=== PATIENT | female | born 1940 | race Caucasian/White ===

== ENCOUNTER 2020-02-25 00:30 | Inpatient (IN) | payer MEDICAID, SELFPAY ==
[2020-02-25] VITALS (8 sets, daily range): BP systolic 105–149; BP diastolic 50–84; PULSE 57–78; RESP 16–20; TEMP 36.4–37; O2SAT 94–98; BMI 25.4; BMI 22.5; BMI 22.6
--- NOTE | 2020-02-25 00:42 | RAD_ITS ---
STUDY: X-RAY - RIGHT KNEE REASON FOR EXAM: Female, 79 years old. FALL. KNEE PAIN TECHNIQUE: 4 view(s) of the knee. COMPARISON: None. FINDINGS: There are longitudinal fractures of the distal femur extending into the medial femoral condyle. The tibia and fibula and patella are intact. 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 There is a large suprapatellar effusion. RAD/Knee 4 or More Views IMPRESSION: There are longitudinal fractures of the distal femur extending into the medial femoral condyle. There is NO joint dislocation. There is a large suprapatellar effusion. Electronically Signed: Rodrick Braden MD at 1:52 EDT , Service support ,
--- NOTE | 2020-02-25 00:56 | ED.DCSUM_ITS ---
History of Present Illness Chief Complaint: Fall Informant: Patient, Family Limited: Language barrier Occurred: Today Mechanism/Context: Same level fall, Trip Usually ambulates: Without assistance Quality of Pain: Throbbing Narrative: Patient is an 79-year-old female presenting with difficulty walking and right knee pain after mechanical fall. Patient was walking with her daughter today when she tripped and fell. She landed on her right knee and braced herself with her hands. She was able to get herself back up but is since had worsening pain and swelling of her right knee. Family had her in the chair and put a knee compression wrap on and she sat the chair for about 4 hours. When she went to get up she could not walk. Patient was unable to go to the bathroom because she could not ambulate. On her patient is visiting from [place]. Her daughter is at the bedside who translates for her. Patient had ibuprofen at 730 this evening. Past Medical History - Allergies and Home Meds Allergies/Adverse Reactions: Allergies No Known Allergies Allergy (Verified 02/25/20 00:42) Past Medical History: - - Hypertension ,hyperlipidemia Surgical History: no surgical history Lives: With Family Smoking Status: Never smoker - Family History Paternal Family History: Reports: - - Patient denies any market maternal or paternal family history including heart disease, diabetes or cancer. Maternal Family History: Reports: - - Patient denies any market maternal or paternal family history including heart disease, diabetes or cancer. Review of Systems General: Denies: Chills, Fever, Sweats Eyes: Denies: Visual changes - bilaterally, Diplopia ENT: Denies: Rhinorrhea, Sore throat Cardiovascular: Denies: Chest pain, Palpitations Respiratory: Denies: Dyspnea, Cough, Dyspnea on exertion Gastrointestinal: Denies: Abdominal pain, Nausea, Vomiting, Diarrhea, Melena, Hematochezia Genitourinary: Denies: Dysuria, Hematuria, Frequency Musculoskeletal: Reports: Swelling, Extremity Pain - Right knee. Denies: Back pain Skin: Denies: Rash, Wounds Neurological: Denies: Headache, Weakness, Numbness Physical Exam Vital Signs/Narrative: Vital Signs Temp Pulse Resp BP Pulse Ox 02/25/20 00:32 98.0 F 66 16 149/84 H 96 Inital Vital Signs reviewed: Yes General: Well nourished, Well developed Head: Normocephalic, Atraumatic Eyes: Perrl, EOMI ENT: No trauma Neck: Nontender, Full ROM Cardiovascular: Regular rate, Regular rhythm, - - 2+ bilateral DP pulses Respiratory: No distress, CTA bilaterally, Chest nontender Abdomen: Soft, Nontender, Nondistended, Normal bowel sounds Extremeties: Extremities are equal length. Patient has significant soft tissue swelling and edema of the right knee. Straight leg mechanism is intact but limited secondary to pain. Decreased range of motion of the right knee and difficult to evaluate further secondary to pain and swelling. Point of maximum tenderness is over the medial knee. Skin: Normal color, No rash, - - Developing ecchymosis over the right knee Neurological: Alert, Oriented x3, Cranial nerves II-XII grossly intact, Normal Strength, Normal Sensation Psychological: Normal affect Diagnostic/Tx/Re-eval Clinical Impression(s) from Imaging Studies Knee X-Ray 02/25/20 00:42 IMPRESSION: There are longitudinal fractures of the distal femur extending into the medial femoral condyle. There is NO joint dislocation. There is a large suprapatellar effusion. Electronically Signed: Rodrick Braden MD at 1:52 EDT , Service support , Hip/Pelvis X-Ray 02/25/20 01:25 IMPRESSION: There are NO fractures or malalignments. 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 Electronically Signed: Rodrick Braden MD at 1:58 EDT , Service support , Lower Extremity CT 02/25/20 02:19 IMPRESSION: There is an intra-articular fracture of the distal femur extending from the medial aspect of the of the distal femoral diaphysis through the articular surface of the medial femoral condyle and the intercondylar region. 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 There is a large suprapatellar effusion. Electronically Signed: Rodrick Braden MD at 3:16 EDT , Service support , - Medical Decision Making Patient evaluated for right knee pain after mechanical fall. It happened about 4 hours prior to arrival. Initially given Tylenol and ibuprofen in the emergency room. She is otherwise well-appearing. She not hit her head or sustain any other injuries. She does have associated swelling of the knee. X- ray of the knee and hip are obtained and patient is found to have a distal femur fracture. Discussed with orthopedics on-call, Dr. Steven, who recommends obtaining a CT for further evaluation but believes it is likely this will be nonoperative and patient be placed in a knee immobilizer and nonweightbearing status. Discussed with the patient and her daughter. The daughter does not feel comfortable taking care of her mother especially with her nonweightbearing status with a resource that she currently has at home. Patient is unable to ambulate with nonweightbearing status. Patient be admitted for further evaluation and likely PT/OT. She is given 4 of IV morphine in the emergency room for pain control. Baseline labs are obtained for admission. ED Disposition - Plan for ED Patient: Disposition: [facility] Diagnosis: Fracture of distal end of femur
[2020-02-25] MEDS: Acetaminophen 325 MG Tablet 650 MG PO (01:07)
--- NOTE | 2020-02-25 01:25 | RAD_ITS ---
STUDY: X-RAY - PELVIS AND RIGHT HIP REASON FOR EXAM: Female, 79 years old. FALL, RIGHT HIP PAIN TECHNIQUE: 6 views of the pelvis and hip. COMPARISON: None. FINDINGS: There is a non-specific bowel gas pattern. Normal visualized soft tissue structures. Normal bilateral iliac wings, sacroiliac joints and visualized sacrum. Normal bilateral superior and inferior pubic rami. Normal pubic symphysis. Normal bilateral ischial tuberosities. Normal visualized femoral head. Normal acetabulum. There is advanced degenerative arthrosis of the hip joint. RAD/HIP, UNI W/ Pelvis 2-3 Views IMPRESSION: There are NO fractures or malalignments. 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 Electronically Signed: Rodrick Braden MD at 1:58 EDT , Service support ,
[2020-02-25] MEDS: Ibuprofen 200 MG Tablet 400 MG PO (01:37)
--- NOTE | 2020-02-25 02:19 | CT_ITS ---
STUDY: CT RIGHT femur WITHOUT CONTRAST REASON FOR EXAM: Female, 79 years old. Trauma RADIATION DOSAGE (If Supplied By Facility): CTDIvol = ( 15.37 ) mGy, DLP = ( 769.01 ) mGycm TECHNIQUE: Axial CT images of the RIGHT femur were obtained with multiplanar reconstruction. The protocol utlizes one or more of the following dose reduction techniques: automated exposure control, adjustment of the mA and/or KV according to the patient size, and/or use of iterative reconstruction techniques. Individualized dose optimization techniques were used for this CT. COMPARISON: No relevant priors. FINDINGS: The RIGHT hip is intact. There is NO fracture or dislocation. There is moderate degenerative arthrosis. There is an intra-articular fracture of the distal femur extending from the medial aspect of the of the distal femoral diaphysis through the articular surface of the medial femoral condyle and the intercondylar region. 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 The tibia and fibula and patella are intact. There is a large suprapatellar effusion. CT/Extremity Lower without Contra IMPRESSION: There is an intra-articular fracture of the distal femur extending from the medial aspect of the of the distal femoral diaphysis through the articular surface of the medial femoral condyle and the intercondylar region. 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 There is a large suprapatellar effusion. Electronically Signed: Rodrick Braden MD at 3:16 EDT , Service support ,
--- NOTE | 2020-02-25 02:44 | PCM.HP.STD ---
Problem List (1) Fracture of distal end of femur Status: Acute Qualifiers: Encounter type: initial encounter Fracture type: closed Fracture morphology: unspecified fracture morphology Laterality: right Qualified Code(s): S72.401A - Unspecified fracture of lower end of right femur, initial encounter for closed fracture (2) HTN (hypertension) Status: Chronic Qualifiers: Hypertension type: essential hypertension Qualified Code(s): I10 - Essential (primary) hypertension (3) HLD (hyperlipidemia) Status: Chronic Qualifiers: Hyperlipidemia type: unspecified Qualified Code(s): E78.5 - Hyperlipidemia, unspecified History of Present Illness Date of Admission: 02/25/20 Chief Complaint: Mechanical fall, R knee intractable pain The patient is an 79 y/o F w/ PMHx: HTN, HLD who presents to the [facility] ED on 02/25/20 with history of unfortunate mechanical fall approximately 5 hours prior to ED arrival with progressively worsening discomfort with severe/sharp constant, rated 6-7 out of 10 in severity, unable to bear weight, prompting eventual ED presentation. 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 In the ED patient administered Tylenol and ibuprofen. ED discussed case with on-call orthopedic surgeon, Dr. Steven who noted likely nonoperative and recommended knee immobilizer and nonweightbearing status however requested also CT to the right lower extremity to further assess. Pending concurrently admission CBC, BMP per ED. Patient's daughter is present and is acting as capacity analyst. Past Medical History Past Medical History (Chronic Problems): Chronic Problems HTN (hypertension) (Chronic) HLD (hyperlipidemia) (Chronic) Allergies No Known Allergies Allergy (Verified 02/25/20 00:42) Home Medications: Ambulatory Orders Medication Instructions Recorded Aspirin 325 mg PO DAILY 02/25/20 Atorvastatin Calcium 40 mg PO DAILY 02/25/20 Ergocalciferol (Vitamin D2) 1,250 mcg PO QWEEK 02/25/20 [Vitamin D2] Metoprolol Succinate 50 mg PO DAILY 02/25/20 Surgical History: cataract Psychiatric History: No pertinent psych hx FERMENTER CHAMPAGNE History: No pertinent FERMENTER CHAMPAGNE history Lives: With Family - Patient currently visiting her daughter but is actually from [place] and lives with other family there. Smoking Status: Never smoker Tobacco Use: Non-smoker Alcohol: None Drugs: None - *Family History Paternal History Items: - - Patient denies any market maternal or paternal family history including heart disease, diabetes or cancer. Maternal History Items: - - Patient denies any market maternal or paternal family history including heart disease, diabetes or cancer. Review of Systems Constitutional: Reports: Weakness, Fatigue. Denies: Anorexia, Chills, Fever, Malaise, Weight Change HEENT: Denies: Head Aches, Sinus Congestion, Sinus Drainage Cardiovascular: Denies: Chest Pain, Palpitations Respiratory: Denies: Cough, Shortness of breath at rest, Sputum production Gastrointestinal: Denies: Abdominal Pain, Nausea, Vomiting Genitourinary: Denies: Dysuria Musculoskeletal: Reports: Joint Pain, Joint stiffness, Joint swelling, Joint Tenderness Skin: Denies: Rash, Wounds Neurological: Denies: Numbness, Tingling, Focal weakness Psychiatric: Denies: Anxiety, Depression, Homicidal Ideations, Suicidal Ideations Hematologic/ Lymphatic: Denies: Easy Bruising, Easy Bleeding VTE Information - Inpt Only VTE Present on Admission: No VTE Mechan Device Prophylaxis: SCD's VTE Pharm Prophylaxis ordered?: No Reason prophylaxis not ordered:: Medical Contraindication - Hold for possible OR pending CT scan, currently appears nonoperative but will await imaging. Will plan adding chemoprophylaxis if appropriate. Patient Problems: Active and Suspected Problems Fracture of distal end of femur (Acute) Subjective: Patient seated upright in the ED bed, mildly fatigued appearing otherwise no acute distress, currently still rating right knee pain at 6 out of 10 in severity. Objective: Physical Examination: General: awake, alert, oriented x 3 and cooperative, seated upright in bed in no apparent distress but rating her pain 6 out of 10. Skin: normal color, turgor, no icterus, cyanosis. HEENT: AT/NC, EOMI, PERRLA, mildly dry MM, no carotid bruits or JVD noted. Lungs: CTA bilaterally, moderate effort, mild decrease BL bases, no rales, ronchi or wheezing. Heart: Regular rate and rhythm; no gallop, rub audible. Abdomen: soft, NTTP, ND, normal BS, no HSM. Extremities: no cyanosis, clubbing, status post mechanical fall with significant right knee enlargement, tender to palpation, peripheral pulses intact, deferred range of motion secondary to fracture. Neurological: patient awake, alert, oriented x 3; cognitive function intact; pupils equally reactive to light and accomodation; cranial nerves II-XII grossly normal, moving all 4 extremities except expected limited right lower extremity secondary to distal femur fracture, significant swelling to the right knee, strength accordingly moderately to severely global decrease. Psychiatric: affect appears mildly fatigued otherwise normal, no acute evidence of depressive or anxiety feelings. - Physical Exam Vitals/I&O's: Vital Signs Temp Pulse Resp BP Pulse Ox 98.0 F 66 16 149/84 H 96 02/25/20 00:32 02/25/20 00:32 02/25/20 00:32 02/25/20 00:32 02/25/20 00:32 Oxygen Delivery Method Room Air Weight: 130 lb 1.164 oz Body Mass Index (BMI) 25.4 Assessment/Plan All Active Problems Fracture of distal end of femur (Acute) The patient is an 79 y/o F w/ PMHx: HTN, HLD who presents to the [facility] ED on 02/25/20 with history of unfortunate mechanical fall approximately 5 hours prior to ED arrival with progressively worsening discomfort and now inability to even bear weight with severe ongoing pain. 1. Mechanical fall with a right distal femur longitudinal fractures with large suprapatellar effusion: ED plain film of the right knee with noted longitudinal fractures of the distal femur extending into the medial femoral condyle with no joint dislocation but a large suprapatellar effusion, pending CT right lower extremity per orthopedic surgery request. Orthopedic surgery consulted from ED. Will admit to MS, maintain NPO in case of any operative intervention given CT right lower extremity pending however likely nonoperative per initial discussions, continue judicious IV fluids, monitor I/Os, frequent positioning, fall precautions, Pain, anti-emetic regimen. PT/OT with nonweightbearing status to right lower extremity and continue knee immobilizer. CM consulted for discharge planning. Patient may be an appropriate acute rehab candidate. 2. Hypertension: Continue home regimen including metoprolol, PRN hydralazine. 3. Hyperlipidemia: Continue home statin regimen. 4. DVT prophylaxis: SCDs if able to tolerate, defer chemoprophylaxis pending orthopedic surgery evaluation in case of OR needs. OBSV E&M: 71045 Initial observation care L3
[2020-02-25] MEDS: Morphine 4 MG/ML Syringe IV ×3 (03:16→11:14)
[2020-02-25 03:23] LABS: Absolute Lymphocyte Count 1.95 X10^3/uL (0.83-4.51); Absolute Neutrophil Count 10.3 X10^3/uL (2.0-7.7); Basophil# 0.05 X10^3/uL; Basophil% 0.4 % (0-1); Eosinophil# 0.23 X10^3/uL; Eosinophils% 1.7 % (0-5); Hematocrit 34.7 % (37-47); Hemoglobin 11.2 g/dL (12.0-15.0); Lymphocyte # 1.95 X10^3/ul (4.0); Lymphocyte % 14.4 % (19-41); Mean Corp Hgb Conc 32.3 g/dL (32-36); Mean Corpuscular Hgb 29.6 pg (27.0-32.0); Mean Corpuscular Volume 91.8 fL (81-99); Mean Platelet Vol. 9.9 fl (6.2-12.0); Monocyte# 0.96 X10^3/uL; Monocyte% 7.1 % (0-10); NRBC Flagged by Analyzer 0 % (0-5); Neutrophil # 10.32 X10^3/uL (2.7-7.7); Platelet Count 246 K/mm3 (150-450); RBC Distribution Width CV 12.6 % (11.6-14.6); RBC Distribution Width SD 41.9 fl (35.1-43.9); Red Blood Count 3.78 M/mm3 (4.2-5.4); White Blood Count 13.6 K/mm3 (4.4-11.0)
[2020-02-25 03:39] LABS: Anion Gap 8 (5-15); BUN 28 mg/dL (7-18); BUN/Creat Ratio 24.8 RATIO (10-20); Calcium,Total 8.6 mg/dL (8.5-10.1); Chloride 100 mmol/L (98-107); Creatinine, Serum 1.13 mg/dL (0.55-1.02); EST Glomerular Filtration Rate 49 mL/min (>60); Est Glom Filt Rate - Afr Amer 59 mL/min (>60); Estimated Creatinine Clearance 28.05 ml/min; Glucose 119 mg/dL (74-106); Potassium 4.3 mmol/L (3.5-5.1); Sodium Level 134 mmol/L (136-145)
[2020-02-25 05:17] LABS: Magnesium 1.8 mg/dL (1.6-2.6)
[2020-02-25] MEDS: 0.9% Saline Lock 10 ML Syringe IV ×4 (05:46→14:14)
[2020-02-25] MEDS: 0.9% Normal Saline 1,000 ML 100 ML IV (05:46)
[2020-02-25] MEDS: Ondansetron 4 MG/2 ML Vial IV (05:54)
--- NOTE | 2020-02-25 08:20 | PCM.PN.BLA ---
Progress Note 79-year-old lady admitted with intractable right knee pain following a mechanical fall imaging studies demonstrated longitudinal fractures of the distal femur extending into the medial femoral condyle. Right lower extremity immobilized admitted to regular nursing floor with consultation placed to orthopedic surgery Assessment 1. Acute mechanical fall with longitudinal fractures of the distal femur extending into the medial femoral condyle extremity 2. Essential hypertension 3. Dyslipidemia Patient seen and examined her initial assessment including history and physical diagnostic data and management orders reviewed will follow [facility] Vital Signs/Narrative: Vital Signs Temp Pulse Resp BP Pulse Ox 02/25/20 04:50 98.5 F 66 20 H 130/74 H 97
--- NOTE | 2020-02-25 11:46 | CASEMGMT ---
Social Work SW met with pt and daughter Brittaney. Pt is non-Wolof speaking and Brittaney spoke on behalf of pt. Pt lives in [place] and a daughter Kirstin lives close by. Pt does not drive but is independent with all ADLs and IADLs. Pt was visiting dgt Brittaney, who lives in [place], and had a fall at her home. Brittaney states she cannot care for pt at home and would like pt to stay at [facility] for rehab. Pt may be a candidate for Inpatient Rehab Unit. Brittaney is uncertain if pt has a HCPOA but states pt sister Kirstin has more information. Phone call placed to Kirstin who confirms pt lives close to her in [place] and that pt was independent at home. Pt does have a HCPOA naming Kirstin and she will ask PCP to fax copy of document to [facility]. Kirstin is agreeable to Inpatient Rehab and states after rehab pt will be returning to [place], either pt own home or with Kirstin depending on how pt is doing. SW explained to both Brittaney and Kirstin that [place] is dependent on pt ability to participate in 3 hours of therapy a day and on insurance authorization. Orthopedic consult is pending as well at PT/OT. Phone call to Debbi in [place] and notified of referral dependent on outcome of Ortho and therapy. NEREYDA will continue to follow for discharge planning. Plan: Inpatient Rehab, pending pt auth and pt ability to participate. MERE Dean
[2020-02-25] MEDS: proCHLORPERazine 10 MG/2 ML Vial 5 MG IV (14:13)
[2020-02-25] MEDS: Famotidine 20 MG Tablet PO ×2 (14:14→21:36)
--- NOTE | 2020-02-25 16:07 | PCM.CONS.GEN ---
Reason for Consult Date of Consultation: 02/25/20 Reason for Consultation: right knee pain. Requested by Dr. Strickland History of Present Illness: The patient is a 79 year old F with history of hyperlipidemia, hypertension, coronary artery disease and breast cancer presents today status post fall. Patient was visiting her daughter when she had a mechanical fall she lives in [place] originally. Her daughter lives in town. Fall patient had severe swelling of the right knee and inability to bear weight. She reports pain today. She is unable to speak Mongolian to her daughter was able to face time and interpret for me. She notes she has minimal pain usually and I thought her dyspnea mother's description of the pain was rated at a 7 out of 10. She has been very calm and collected she did well with therapy just prior to being seen by me. We have made her nonweightbearing. Pain is worse with motion better with immobilization. She is in a knee immobilizer right now. Denies any numbness and tingling distally. Past Medical History Past Medical History (Chronic Problems): Chronic Problems HTN (hypertension) (Chronic) HLD (hyperlipidemia) (Chronic) Allergies No Known Allergies Allergy (Verified 02/25/20 00:42) Home Medications: Ambulatory Orders Medication Instructions Recorded Aspirin 325 mg PO DAILY 02/25/20 Atorvastatin Calcium 40 mg PO DAILY 02/25/20 Ergocalciferol (Vitamin D2) 1,250 mcg PO QWEEK 02/25/20 [Vitamin D2] Metoprolol Succinate 50 mg PO DAILY 02/25/20 Surgical History: no surgical history Psychiatric History: No pertinent psych hx METALLURGICAL SPECIALIST History: No pertinent METALLURGICAL SPECIALIST history Lives: With Family Smoking Status: Never smoker Tobacco Use: Non-smoker Alcohol: None Drugs: None - *Family History Paternal History Items: - - Patient denies any market maternal or paternal family history including heart disease, diabetes or cancer. Maternal History Items: - - Patient denies any market maternal or paternal family history including heart disease, diabetes or cancer. Review of Systems Constitutional: Denies: Chills, Fever, Weight Change HEENT: Denies: Head Aches, Sinus Congestion, Sinus Drainage Cardiovascular: Denies: Chest Pain, Palpitations Respiratory: Denies: Cough, Shortness of breath at rest, Sputum production Gastrointestinal: Denies: Abdominal Pain, Nausea, Vomiting Genitourinary: Denies: Dysuria Musculoskeletal: Reports: Joint swelling, Joint Tenderness. Denies: Joint Pain Skin: Denies: Rash, Wounds Neurological: Denies: Numbness, Tingling, Focal weakness Psychiatric: Denies: Anxiety, Depression, Homicidal Ideations, Suicidal Ideations Hematologic/ Lymphatic: Denies: Easy Bruising, Easy Bleeding Patient Problems: Active and Suspected Problems Fracture of distal end of femur (Acute) Objective: Right knee x-ray and CT scan were reviewed showing a intercondylar medial condyle fracture exiting at the metaphyseal diaphyseal junction of the medial femur. It is not in the weightbearing surface. It goes into the intercondylar notch. There is minimal displacement of the fracture. Patient also has evidence of severe osteoarthritis in the right knee. Right hip x-rays reveal no acute fractures. - Physical Exam Vitals/I&O's: Vital Signs Temp Pulse Resp BP Pulse Ox 98.1 F 57 L 18 120/50 L 98 02/25/20 14:46 02/25/20 14:46 02/25/20 14:46 02/25/20 14:46 02/25/20 14:46 Oxygen Delivery Method Room Air Weight: 115 lb 8.356 oz Body Mass Index (BMI) 22.5 Intake and Output for Last 24 Hours 02/23/20 02/24/20 02/25/20 23:59 23:59 23:59 Intake Total 250 / 250 Balance 250 / 250 General: Alert, Cooperative Extremities: - - Right lower extremity: Much of the exam is limited by the patient's communication barrier. She is able to wiggle her digits. She responds to noxious stimuli. She has a large effusion likely related to hemarthrosis of the joint. Does not tolerate range of motion secondary to pain and effusion. No overlying erythema. Laboratory Results 02/25/20 03:15: WBC 13.6 H, RBC 3.78 L, Hgb 11.2 L, Hct 34.7 L, MCV 91.8, MCH 29.6, MCHC 32.3, RDW Std Deviation 41.9, RDW Coeff of Saleem 12.6, Plt Count 246, MPV 9.9, Immature Gran % (Auto) 0.400, Neut % (Auto) 76.0 H, Lymph % (Auto) 14.4 L, [place] % (Auto) 7.1, Eos % (Auto) 1.7, Baso % (Auto) 0.4, Absolute Neuts (auto) 10.3 H, Absolute Lymphs (auto) 1.95, Nucleated RBC % 0 02/25/20 03:15: Sodium 134 L, Potassium 4.3, Chloride 100, Carbon Dioxide 26.0, Anion Gap 8, BUN 28 H, Creatinine 1.13 H, Estim Creat Clear Calc 28.05, Est GFR (MDRD) Af Amer 59 L, Est GFR (MDRD) Non-Af 49 L, BUN/Creatinine Ratio 24.8 H, Glucose 119 H, Calcium 8.6 02/25/20 03:15: Magnesium 1.8 Current Medications Acetaminophen (Tylenol) 650 mg PO Q6H PRN PRN PRN Reason: Pain Score 1-10/Temp > 100.7 F Al Hydroxide/Mg Hydroxide (Mylanta Ii) 30 ml PO Q6H PRN PRN PRN Reason: Gastric Burning Albuterol Sulfate (Ventolin Aerosols) 2.5 mg INHALATION Q2H PRN PRN PRN Reason: Dyspnea, wheezing [facility] Last Admin: 02/25/20 08:42 Dose: Not Given Documented by: Atorvastatin Calcium (Lipitor) 40 mg PO QHS [facility] Famotidine (Pepcid) 20 mg PO BID [facility] Last Admin: 02/25/20 14:14 Dose: 20 mg Documented by: Guaifenesin (Robitussin) 20 ml PO Q4H PRN PRN PRN Reason: COUGH Hydralazine HCl (Apresoline Iv) 10 mg IV Q4H PRN PRN PRN Reason: SBP > 160 Sodium Chloride () 250 mls @ 15 mls/hr IV .[id number] PRN PRN Reason: Saline Flush Magnesium Hydroxide (Milk Of Magnesia) 30 ml PO DAILY PRN PRN PRN Reason: Constipation Melatonin (Melatonin) 3 mg PO QHS PRN PRN PRN Reason: INSOMNIA Metoprolol Succinate (Toprol Xl (Beta Skye)) 50 mg PO DAILY [facility] Last Admin: 02/25/20 11:15 Dose: Not Given Documented by: Morphine Sulfate () 4 mg IV Q3H PRN PRN PRN Reason: Pain Score 6-10/10 Last Admin: 02/25/20 11:14 Dose: 4 mg Documented by: Nitroglycerin (Nitrostat) 0.4 mg SUBLINGUAL Q5M PRN PRN Reason: CARDIAC/CHEST PAIN Ondansetron HCl (Zofran) 4 mg IV Q8H PRN PRN PRN Reason: NAUSEA/VOMITING Last Admin: 02/25/20 05:54 Dose: 4 mg Documented by: Oxycodone HCl (Oxyir) 5 mg PO Q4H PRN PRN PRN Reason: Pain Score 4-5/10 Prochlorperazine Edisylate (Compazine Iv) 5 mg IV Q4H PRN PRN PRN Reason: Breakthrough nausea/vomiting Last Admin: 02/25/20 14:13 Dose: 5 mg Documented by: Psyllium Hydrophilic Mucilloid (Metamucil) 1 packet PO DAILY PRN PRN PRN Reason: Constipation Senna/Docusate Sodium (Senokot-S, Adamaris-Colace) 2 tablet PO BID PRN PRN PRN Reason: Constipation Sodium Chloride () 10 - 40 ml IV UD PRN PRN Reason: SALINE FLUSH Last Admin: 02/25/20 14:14 Dose: 10 ml Documented by: Throat Lozenges (Cepacol Sore Throat Lozenge) 1 lozenge MUCOUS MEM Q2H PRN PRN PRN Reason: SORE THROAT Assessment/Plan All Active Problems Fracture of distal end of femur (Acute) Right medial condyle distal femur fracture with minimal displacement. Natural history of the disease process was discussed with the patient's daughter and her who is a internal medicine physician in [place]. I outlined to treatment options one would be close following with nonoperative treatment to evaluate if she is able to follow the weightbearing restrictions. Second option was to proceed with percutaneous fixation of the fracture. The option was open plating of the medial femur based on the severe arthrosis already recommended against a large open procedure. Ultimately we elected to see how the patient tolerates nonweightbearing and the physical therapy regimen. If she tolerates it well and the fracture remained stable we will proceed with nonoperative treatment. We will follow her closely and reassess her again early next week. We will see how she does with therapy over the weekend and if she is not tolerating therapy we will likely proceed with percutaneous fixation. Family was agreeable to this treatment plan in light of her age pre-existing severe radiographic osteoarthritis and medical comorbidities. The plan has been discussed with the internal medicine physician managing her in-house care. We will keep her through the weekend and evaluate her tolerance of therapy and repeat x-rays on Friday. [facility] Office:
--- NOTE | 2020-02-25 16:23 | CASEMGMT ---
Social Work Per orthopedic physician, pt will be reassessed on Friday. SW will continue to follow for discharge planning and appropriateness of inpatient rehab. VM left with Debbi in [place] and updated on pt status. MERE Dean
[2020-02-25] MEDS: Atorvastatin Calcium 40 MG Tablet PO (21:36)
[2020-02-26 02:29] VITALS: BP 116/58; PULSE 74; RESP 17; TEMP 36.9; O2SAT 93
[2020-02-26] MEDS: oxyCODONE 5 MG Tablet PO ×2 (06:55→12:46)
[2020-02-26] MEDS: Enoxaparin 30 MG/0.3 ML Syringe SC (06:55)
[2020-02-26 07:02] VITALS: O2SAT 93
[2020-02-26 07:03] LABS: Absolute Neutrophil Count 6.9 X10^3/uL (2.0-7.7); Basophil# 0.06 X10^3/uL; Basophil% 0.5 % (0-1); Eosinophil# 0.21 X10^3/uL; Eosinophils% 1.8 % (0-5); Hematocrit 34.5 % (37-47); Hemoglobin 10.8 g/dL (12.0-15.0); Lymphocyte % 28.7 % (19-41); Mean Corp Hgb Conc 31.3 g/dL (32-36); Mean Corpuscular Volume 92.7 fL (81-99); Mean Platelet Vol. 10.6 fl (6.2-12.0); Monocyte# 1.25 X10^3/uL; Monocyte% 10.5 % (0-10); NRBC Flagged by Analyzer 0 % (0-5); Neutrophil # 6.89 X10^3/uL (2.7-7.7); Neutrophil % 58.2 % (47-70); Platelet Count 277 K/mm3 (150-450); RBC Distribution Width CV 12.8 % (11.6-14.6); RBC Distribution Width SD 43.2 fl (35.1-43.9); Red Blood Count 3.72 M/mm3 (4.2-5.4); White Blood Count 11.9 K/mm3 (4.4-11.0)
--- NOTE | 2020-02-26 07:11 | PCM.PN.HOSP ---
Patient Problems: Active and Suspected Problems Fracture of distal end of femur (Acute) Reason for Visit: S/p fractures of the distal femur extending into the medial femoral condyle Subjective: 79-year-old lady admitted with intractable right knee pain following a mechanical fall imaging studies demonstrated longitudinal fractures of the distal femur extending into the medial femoral condyle. Right lower extremity immobilized admitted to regular nursing floor with consultation placed to orthopedic surgery Objective: GENERAL: cooperative HEENT: Atraumatic; EYES; Anicteric, Normal Conjunctiva NECK; supple, normal thyroid, RESPIRATORY: Diminished to auscultation CARDIOVASCULAR: Regular S1 S2, GI: soft, normoactive bowel sounds, : No Renal angle tenderness; EXTREMITIES: No edema, no clubbing, MUSCULOSKELETAL: R Lower extremity immobilized NEURO: Awake; no lateralizing signs. SKIN: No Rash PSYCH; Flat affect Vitals/I&O's: Vital Signs Temp Pulse Resp BP Pulse Ox 98.4 F 74 17 116/58 L 93 02/26/20 02:29 02/26/20 02:29 02/26/20 02:29 02/26/20 02:02/26/20 07:02 Oxygen Delivery Method Room Air Weight: 52.4 kg Body Mass Index (BMI) 22.5 Intake and Output for Last 24 Hours 02/24/20 02/25/20 02/26/20 23:59 23:59 23:59 Intake Total 1650 / 1650 560 / 560 Balance 1650 / 1650 560 / 560 Laboratory Results 02/26/20 06:16: WBC 11.9 H, RBC 3.72 L, Hgb 10.8 L, Hct 34.5 L, MCV 92.7, MCH 29.0, MCHC 31.3 L, RDW Std Deviation 43.2, RDW Coeff of Saleem 12.8, Plt Count 277, MPV 10.6, Immature Gran % (Auto) 0.300, Neut % (Auto) 58.2, Lymph % (Auto) 28.7, [place] % (Auto) 10.5 H, Eos % (Auto) 1.8, Baso % (Auto) 0.5, Absolute Neuts (auto) 6.9, Absolute Lymphs (auto) 3.40, Nucleated RBC % 0 02/26/20 06:16: Sodium Pending, Potassium Pending, Chloride Pending, Carbon Dioxide Pending, Anion Gap Pending, BUN Pending, Creatinine Pending, Est GFR (MDRD) Af Amer Pending, Est GFR (MDRD) Non-Af Pending, BUN/Creatinine Ratio Pending, Glucose Pending, Calcium Pending, Total Bilirubin Pending, AST Pending, ALT Pending, Alkaline Phosphatase Pending, Total Protein Pending, Albumin Pending Current Medications Acetaminophen (Tylenol) 650 mg PO Q6H PRN PRN PRN Reason: Pain Score 1-10/Temp > 100.7 F Al Hydroxide/Mg Hydroxide (Mylanta Ii) 30 ml PO Q6H PRN PRN PRN Reason: Gastric Burning Albuterol Sulfate (Ventolin Aerosols) 2.5 mg INHALATION Q2H PRN PRN PRN Reason: Dyspnea, wheezing Aspirin (Aspirin) 325 mg PO DAILYCM [facility] Last Admin: 02/25/20 08:42 Dose: Not Given Documented by: Atorvastatin Calcium (Lipitor) 40 mg PO QHS [facility] Last Admin: 02/25/20 21:36 Dose: 40 mg Documented by: Enoxaparin Sodium (Lovenox) 30 mg SC DAILY@0600 [facility] Last Admin: 02/26/20 06:55 Dose: 30 mg Documented by: Famotidine (Pepcid) 20 mg PO BID [facility] Last Admin: 02/25/20 21:36 Dose: 20 mg Documented by: Guaifenesin (Robitussin) 20 ml PO Q4H PRN PRN PRN Reason: COUGH Hydralazine HCl (Apresoline Iv) 10 mg IV Q4H PRN PRN PRN Reason: SBP > 160 Sodium Chloride () 250 mls @ 15 mls/hr IV .[id number] PRN PRN Reason: Saline Flush Magnesium Hydroxide (Milk Of Magnesia) 30 ml PO DAILY PRN PRN PRN Reason: Constipation Melatonin (Melatonin) 3 mg PO QHS PRN PRN PRN Reason: INSOMNIA Metoprolol Succinate (Toprol Xl (Beta Skye)) 50 mg PO DAILY [facility] Last Admin: 02/25/20 11:15 Dose: Not Given Documented by: Morphine Sulfate () 4 mg IV Q3H PRN PRN PRN Reason: Pain Score 6-10/10 Last Admin: 02/25/20 11:14 Dose: 4 mg Documented by: Nitroglycerin (Nitrostat) 0.4 mg SUBLINGUAL Q5M PRN PRN Reason: CARDIAC/CHEST PAIN Ondansetron HCl (Zofran) 4 mg IV Q8H PRN PRN PRN Reason: NAUSEA/VOMITING Last Admin: 02/25/20 05:54 Dose: 4 mg Documented by: Oxycodone HCl (Oxyir) 5 mg PO Q4H PRN PRN PRN Reason: Pain Score 4-5/10 Last Admin: 02/26/20 06:55 Dose: 5 mg Documented by: Prochlorperazine Edisylate (Compazine Iv) 5 mg IV Q4H PRN PRN PRN Reason: Breakthrough nausea/vomiting Last Admin: 02/25/20 14:13 Dose: 5 mg Documented by: Psyllium Hydrophilic Mucilloid (Metamucil) 1 packet PO DAILY PRN PRN PRN Reason: Constipation Senna/Docusate Sodium (Senokot-S, Adamaris-Colace) 2 tablet PO BID PRN PRN PRN Reason: Constipation Sodium Chloride () 10 - 40 ml IV UD PRN PRN Reason: SALINE FLUSH Last Admin: 02/25/20 14:14 Dose: 10 ml Documented by: Throat Lozenges (Cepacol Sore Throat Lozenge) 1 lozenge MUCOUS MEM Q2H PRN PRN PRN Reason: SORE THROAT STROKE Vital Signs/Narrative: Vital Signs Pulse Ox 02/26/20 07:02 93 Medical Necessity - Tobacco Use Smoking Status: Never smoker Tobacco Use: Non-smoker Assessment/Plan All Active Problems Fracture of distal end of femur (Acute) 79-year-old lady admitted with intractable right knee pain following a mechanical fall imaging studies demonstrated longitudinal fractures of the distal femur extending into the medial femoral condyle. Right lower extremity immobilized admitted to regular nursing floor with consultation placed to orthopedic surgery 1. Acute mechanical fall with longitudinal fractures of the distal femur extending into the medial femoral condyle extremity -admitted to regular nursing floor with consultation placed to orthopedic surgery; Case d/w Dr Steven plan is for conservative management at this time 2. Hypertension - Blood pressure controlled, home medications continued with dose adjustment as needed 3. Dyslipidemia -Patient is on statin therapy, continued at home dose 4. DVT prophylaxis ?Lovenox dose adjusted for kidney function Active Medications Acetaminophen (Tylenol) 650 mg PO Q6H PRN PRN PRN Reason: Pain Score 1-10/Temp > 100.7 F Al Hydroxide/Mg Hydroxide (Mylanta Ii) 30 ml PO Q6H PRN PRN PRN Reason: Gastric Burning Albuterol Sulfate (Ventolin Aerosols) 2.5 mg INHALATION Q2H PRN PRN PRN Reason: Dyspnea, wheezing Aspirin (Aspirin) 325 mg PO DAILYCM [facility] Last Admin: 02/25/20 08:42 Dose: Not Given Documented by: Atorvastatin Calcium (Lipitor) 40 mg PO QHS [facility] Last Admin: 02/25/20 21:36 Dose: 40 mg Documented by: Enoxaparin Sodium (Lovenox) 30 mg SC DAILY@0600 [facility] Last Admin: 02/26/20 06:55 Dose: 30 mg Documented by: Famotidine (Pepcid) 20 mg PO BID [facility] Last Admin: 02/25/20 21:36 Dose: 20 mg Documented by: Guaifenesin (Robitussin) 20 ml PO Q4H PRN PRN PRN Reason: COUGH Hydralazine HCl (Apresoline Iv) 10 mg IV Q4H PRN PRN PRN Reason: SBP > 160 Sodium Chloride () 250 mls @ 15 mls/hr IV .[id number] PRN PRN Reason: Saline Flush Magnesium Hydroxide (Milk Of Magnesia) 30 ml PO DAILY PRN PRN PRN Reason: Constipation Melatonin (Melatonin) 3 mg PO QHS PRN PRN PRN Reason: INSOMNIA Metoprolol Succinate (Toprol Xl (Beta Skye)) 50 mg PO DAILY [facility] Last Admin: 02/25/20 11:15 Dose: Not Given Documented by: Morphine Sulfate () 4 mg IV Q3H PRN PRN PRN Reason: Pain Score 6-10/10 Last Admin: 02/25/20 11:14 Dose: 4 mg Documented by: Nitroglycerin (Nitrostat) 0.4 mg SUBLINGUAL Q5M PRN PRN Reason: CARDIAC/CHEST PAIN Ondansetron HCl (Zofran) 4 mg IV Q8H PRN PRN PRN Reason: NAUSEA/VOMITING Last Admin: 02/25/20 05:54 Dose: 4 mg Documented by: Oxycodone HCl (Oxyir) 5 mg PO Q4H PRN PRN PRN Reason: Pain Score 4-5/10 Last Admin: 08/15/20 06:55 Dose: 5 mg Documented by: Prochlorperazine Edisylate (Compazine Iv) 5 mg IV Q4H PRN PRN PRN Reason: Breakthrough nausea/vomiting Last Admin: 02/25/20 14:13 Dose: 5 mg Documented by: Psyllium Hydrophilic Mucilloid (Metamucil) 1 packet PO DAILY PRN PRN PRN Reason: Constipation Senna/Docusate Sodium (Senokot-S, Adamaris-Colace) 2 tablet PO BID PRN PRN PRN Reason: Constipation Sodium Chloride () 10 - 40 ml IV UD PRN PRN Reason: SALINE FLUSH Last Admin: 02/25/20 14:14 Dose: 10 ml Documented by: Throat Lozenges (Cepacol Sore Throat Lozenge) 1 lozenge MUCOUS MEM Q2H PRN PRN PRN Reason: SORE THROAT Clinical Impression(s) from Imaging Studies Knee X-Ray 02/25/20 00:42 IMPRESSION: There are longitudinal fractures of the distal femur extending into the medial femoral condyle. There is NO joint dislocation. There is a large suprapatellar effusion. Electronically Signed: Rodrick Braden MD at 1:52 EDT , Service support , Hip/Pelvis X-Ray 02/25/20 01:25 IMPRESSION: There are NO fractures or malalignments. 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 Electronically Signed: Rodrick Braden MD at 1:58 EDT , Service support , Lower Extremity CT 02/25/20 02:19 IMPRESSION: There is an intra-articular fracture of the distal femur extending from the medial aspect of the of the distal femoral diaphysis through the articular surface of the medial femoral condyle and the intercondylar region. 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 There is a large suprapatellar effusion. Electronically Signed: Rodrick Braden MD at 3:16 EDT , Service support , Inpatient E&M: [id number] Subs Hosp L2
[2020-02-26 07:29] LABS: ALB/GLOB Ratio 0.9 RATIO (0.9-2.4); AST(SGOT) 21 U/L (15-37); Alanine Aminotransfer ALT/SGPT 20 U/L (13-56); Albumin, Serum 3.3 g/dL (3.2-5.0); Alkaline Phosphatase 65 U/L (45-117); Anion Gap 9 (5-15); BUN 20 mg/dL (7-18); BUN/Creat Ratio 17.4 RATIO (10-20); Calcium,Total 8.5 mg/dL (8.5-10.1); Chloride 104 mmol/L (98-107); Creatinine, Serum 1.15 mg/dL (0.55-1.02); EST Glomerular Filtration Rate 48 mL/min (>60); Est Glom Filt Rate - Afr Amer 58 mL/min (>60); Estimated Creatinine Clearance 27.56 ml/min; Globulin 3.8 g/dL (2.2-4.2); Glucose 101 mg/dL (74-106); Potassium 3.8 mmol/L (3.5-5.1); Protein, Total 7.1 g/dL (6.4-8.2); Sodium Level 138 mmol/L (136-145)
[2020-02-26 08:00] VITALS: BP 120/67; PULSE 94; RESP 16; TEMP 36.9; O2SAT 99
[2020-02-26] MEDS: Acetaminophen 325 MG Tablet 650 MG PO ×2 (10:49→17:51)
[2020-02-26 10:50] VITALS: PULSE 95
[2020-02-26] MEDS: Aspirin 325 MG Tablet PO (10:50)
[2020-02-26] MEDS: Famotidine 20 MG Tablet PO ×2 (10:50→20:53)
[2020-02-26] MEDS: Metoprolol(XL)Succ 50 MG Tablet PO (10:50)
[2020-02-26 15:30] VITALS: BP 119/69; PULSE 85; RESP 16; TEMP 36.9; O2SAT 98
[2020-02-26 20:44] VITALS: BP 111/62; PULSE 73; RESP 18; TEMP 36.9; O2SAT 97
[2020-02-26] MEDS: Atorvastatin Calcium 40 MG Tablet PO (20:53)
[2020-02-27 04:00] VITALS: BP 140/81; PULSE 70; RESP 18; TEMP 37.6; O2SAT 97
[2020-02-27] MEDS: Acetaminophen 325 MG Tablet 650 MG PO (04:23)
[2020-02-27] MEDS: Enoxaparin 30 MG/0.3 ML Syringe SC (05:14)
[2020-02-27] MEDS: 0.9% Saline Lock 10 ML Syringe IV (05:18)
[2020-02-27 07:04] VITALS: O2SAT 96
--- NOTE | 2020-02-27 07:42 | PCM.PN.HOSP ---
Patient Problems: Active and Suspected Problems Fracture of distal end of femur (Acute) Reason for Visit: Right distal femur fracture Subjective: Patient complains of significant discomfort and swelling involving the right knee. Patient is yet to be evaluated by PT. Plan is for patient to undergo repeat imaging studies on 02/27/[address] Steven to decide whether if patient will require surgical intervention or to continue with current conservative management. Objective: GENERAL: cooperative HEENT: Atraumatic; EYES; Anicteric, Normal Conjunctiva NECK; supple, normal thyroid, RESPIRATORY: Diminished to auscultation CARDIOVASCULAR: Regular S1 S2, GI: soft, normoactive bowel sounds, : No Renal angle tenderness; EXTREMITIES: No edema, no clubbing, MUSCULOSKELETAL: R Lower extremity immobilized with swelling of the right knee NEURO: Awake; no lateralizing signs. SKIN: No Rash PSYCH; Flat affect Vitals/I&O's: Vital Signs Temp Pulse Resp BP Pulse Ox 99.7 F H 70 18 140/81 H 96 02/27/20 04:00 02/27/20 04:00 02/27/20 04:00 02/27/20 04:00 02/27/20 07:04 Oxygen Delivery Method Room Air Weight: 52.4 kg Body Mass Index (BMI) 22.5 Intake and Output for Last 24 Hours 02/25/20 02/26/20 02/27/20 23:59 23:59 23:59 Intake Total 1650 / 1650 1660 / 1910 490 / 490 Balance 1650 / 1650 1660 / 1910 490 / 490 Current Medications Acetaminophen (Tylenol) 650 mg PO Q6H PRN PRN PRN Reason: Pain Score 1-10/Temp > 100.7 F Last Admin: 02/27/20 04:23 Dose: 650 mg Documented by: Al Hydroxide/Mg Hydroxide (Mylanta Ii) 30 ml PO Q6H PRN PRN PRN Reason: Gastric Burning Albuterol Sulfate (Ventolin Aerosols) 2.5 mg INHALATION Q2H PRN PRN PRN Reason: Dyspnea, wheezing [facility] Last Admin: 02/26/20 10:50 Dose: 325 mg Documented by: Atorvastatin Calcium (Lipitor) 40 mg PO QHS [facility] Last Admin: 02/26/20 20:53 Dose: 40 mg Documented by: Enoxaparin Sodium (Lovenox) 30 mg SC DAILY@0600 [facility] Last Admin: 02/27/20 05:14 Dose: 30 mg Documented by: Famotidine (Pepcid) 20 mg PO BID [facility] Last Admin: 02/26/20 20:53 Dose: 20 mg Documented by: Guaifenesin (Robitussin) 20 ml PO Q4H PRN PRN PRN Reason: COUGH Hydralazine HCl (Apresoline Iv) 10 mg IV Q4H PRN PRN PRN Reason: SBP > 160 Sodium Chloride () 250 mls @ 15 mls/hr IV .[id number] PRN PRN Reason: Saline Flush Magnesium Hydroxide (Milk Of Magnesia) 30 ml PO DAILY PRN PRN PRN Reason: Constipation Melatonin (Melatonin) 3 mg PO QHS PRN PRN PRN Reason: INSOMNIA Metoprolol Succinate (Toprol Xl (Beta Skye)) 50 mg PO DAILY [facility] Last Admin: 02/26/20 10:50 Dose: 50 mg Documented by: Morphine Sulfate () 4 mg IV Q3H PRN PRN PRN Reason: Pain Score 6-10/10 Last Admin: 02/25/20 11:14 Dose: 4 mg Documented by: Nitroglycerin (Nitrostat) 0.4 mg SUBLINGUAL Q5M PRN PRN Reason: CARDIAC/CHEST PAIN Ondansetron HCl (Zofran) 4 mg IV Q8H PRN PRN PRN Reason: NAUSEA/VOMITING Last Admin: 02/25/20 05:54 Dose: 4 mg Documented by: Oxycodone HCl (Oxyir) 5 mg PO Q4H PRN PRN PRN Reason: Pain Score 4-5/10 Last Admin: 02/26/20 12:46 Dose: 5 mg Documented by: Prochlorperazine Edisylate (Compazine Iv) 5 mg IV Q4H PRN PRN PRN Reason: Breakthrough nausea/vomiting Last Admin: 02/25/20 14:13 Dose: 5 mg Documented by: Psyllium Hydrophilic Mucilloid (Metamucil) 1 packet PO DAILY PRN PRN PRN Reason: Constipation Senna/Docusate Sodium (Senokot-S, Adamaris-Colace) 2 tablet PO BID PRN PRN PRN Reason: Constipation Sodium Chloride () 10 - 40 ml IV UD PRN PRN Reason: SALINE FLUSH Last Admin: 02/27/20 05:18 Dose: 10 ml Documented by: Throat Lozenges (Cepacol Sore Throat Lozenge) 1 lozenge MUCOUS MEM Q2H PRN PRN PRN Reason: SORE THROAT STROKE Vital Signs/Narrative: Vital Signs Temp Pulse Resp BP Pulse Ox 02/27/20 07:04 96 02/27/20 04:00 99.7 F H 70 18 140/81 H 97 Medical Necessity - Tobacco Use Smoking Status: Never smoker Tobacco Use: Non-smoker Assessment/Plan All Active Problems Fracture of distal end of femur (Acute) 79-year-old lady admitted with intractable right knee pain following a mechanical fall imaging studies demonstrated longitudinal fractures of the distal femur extending into the medial femoral condyle. Right lower extremity immobilized admitted to regular nursing floor with consultation placed to orthopedic surgery 1. Acute mechanical fall with longitudinal fractures of the distal femur extending into the medial femoral condyle extremity -admitted to regular nursing floor with consultation placed to orthopedic surgery; Case d/w Dr Steven plan is for conservative management at this time -02/26/2020 Plan is for patient to undergo repeat imaging studies on 02/27/[address] Steven to decide whether if patient will require surgical intervention or to continue with current conservative management. 2. Hypertension - Blood pressure controlled, home medications continued with dose adjustment as needed 3. Dyslipidemia -Patient is on statin therapy, continued at home dose 4. DVT prophylaxis ?Lovenox dose adjusted for kidney function Inpatient E&M: 86803 Subs Hosp L2
[2020-02-27 10:00] VITALS: BP 132/66; PULSE 84; RESP 18; TEMP 36.9; O2SAT 98
[2020-02-27 11:16] VITALS: PULSE 80
[2020-02-27] MEDS: Aspirin 325 MG Tablet PO (11:16)
[2020-02-27] MEDS: Metoprolol(XL)Succ 50 MG Tablet PO (11:16)
[2020-02-27] MEDS: Famotidine 20 MG Tablet PO ×2 (11:16→21:37)
--- NOTE | 2020-02-27 11:18 | NURSING ---
Patients daughter, Kirstin called here and spoke to this nurse. Daughter states that the patient is not herself and thinks maybe she has had a stroke. Kirstin would like to talk with the hospitalist taking care of her. Dr. Bradley texted via [employer] and informed him of the above and was given DaughterKirstin's phone number. Dr. Bradley agreed to speak with daughter.
[2020-02-27] MEDS: oxyCODONE 5 MG Tablet PO ×2 (11:21→21:37)
--- NOTE | 2020-02-27 11:22 | CT_ITS ---
STUDY: CT BRAIN WITHOUT CONTRAST REASON FOR EXAM: Female, 79 years old. CONFUSION, PT DOES NOT SPEAK GERMAN AND REFUSED TO REMOVE ANY JEWELRY FROM HER HEAD RADIATION DOSAGE (If Supplied By Facility): CTDIvol = ( 44.99 ) mGy, DLP = ( 762.36 ) mGycm TECHNIQUE: Transaxial CT imaging of the brain was performed without administration of intravenous contrast material. Coronal and sagittal reconstructions were performed. Individualized dose optimization techniques were used for this CT. COMPARISON: None. FINDINGS: Normal soft tissue structures. Normal calvarium. Normal size ventricles and extra-axial spaces for the patient''s age. Hypodensities in the white matter of both cerebral hemispheres are chronic white matter ischemic changes. No midline shift and no mass effects. 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 Normal right thalamus. Normal basal ganglia. Normal brainstem. Normal cerebellum. There is no intracranial hemorrhage. There are no findings of an acute ischemic infarction. Normal visualized paranasal sinuses. Vascular calcifications in the intradural segment of the left vertebral artery and in both internal carotid artery siphons. CT/Brain/Head without Contrast IMPRESSION: 1. No CT evidence of intracranial bleeding, acute ischemic infarct or acute intracranial abnormality. 2. Chronic white matter ischemic changes in both cerebral hemispheres. 3. Calcified plaques in the intradural segment of the left vertebral artery and in both internal carotid artery siphons. Electronically Signed: Gage Isaacs MD at 13:28 EDT , Service support ,
[2020-02-27 16:00] VITALS: BP 122/62; PULSE 80; RESP 18; TEMP 36.9; O2SAT 98
[2020-02-27] MEDS: Atorvastatin Calcium 40 MG Tablet PO (21:37)
[2020-02-27 21:45] VITALS: BP 126/74; PULSE 70; RESP 18; TEMP 36.9; O2SAT 100
[2020-02-28 05:00] VITALS: BP 136/77; PULSE 67; RESP 16; TEMP 36.8; O2SAT 97
[2020-02-28 05:43] LABS: Hematocrit 30.9 % (37-47); Mean Corp Hgb Conc 32.4 g/dL (32-36); Mean Corpuscular Hgb 29.3 pg (27.0-32.0); Mean Corpuscular Volume 90.6 fL (81-99); Mean Platelet Vol. 10.1 fl (6.2-12.0); Platelet Count 237 K/mm3 (150-450); RBC Distribution Width CV 12.7 % (11.6-14.6); RBC Distribution Width SD 42.2 fl (35.1-43.9); Red Blood Count 3.41 M/mm3 (4.2-5.4); White Blood Count 10.4 K/mm3 (4.4-11.0)
[2020-02-28 06:03] LABS: Anion Gap 6 (5-15); BUN 16 mg/dL (7-18); BUN/Creat Ratio 16.9 RATIO (10-20); Chloride 104 mmol/L (98-107); Creatinine, Serum 0.95 mg/dL (0.55-1.02); EST Glomerular Filtration Rate 60 mL/min (>60); Est Glom Filt Rate - Afr Amer 73 mL/min (>60); Estimated Creatinine Clearance 33.36 ml/min; Glucose 97 mg/dL (74-106); Magnesium 1.9 mg/dL (1.6-2.6); Potassium 4.4 mmol/L (3.5-5.1); Sodium Level 138 mmol/L (136-145)
[2020-02-28 08:22] VITALS: PULSE 70
[2020-02-28] MEDS: Metoprolol(XL)Succ 50 MG Tablet PO (08:22)
[2020-02-28] MEDS: Famotidine 20 MG Tablet PO (08:22)
[2020-02-28] MEDS: Aspirin 325 MG Tablet PO (08:22)
[2020-02-28 10:00] VITALS: BP 143/68; PULSE 70; RESP 18; TEMP 36.7; O2SAT 96
--- NOTE | 2020-02-28 10:20 | RAD_ITS ---
STUDY: X-RAY - RIGHT KNEE REASON FOR EXAM: Female, 79 years old. Persistent pain, known fracture TECHNIQUE: 2 view(s) of the knee. COMPARISON: 02/25/2020 FINDINGS: Persistent evidence of longitudinal osteochondral fractures in the distal femur. However, there has been some subtle worsening of displacement in the medial femoral condyle since the previous study. There is moderate to severe medial compartment arthrosis. There is moderate patellofemoral arthrosis. Diffuse soft tissue swelling with a joint effusion. No demonstrated patellar, proximal tibia or fibular fracture RAD/Knee 1 or 2 Views IMPRESSION: Slight increase in displacement of the medial fracture fragment of the distal femur when compared to the previous study. Diffuse soft tissue swelling with suprapatellar effusion Stable arthrosis No new fracture Electronically Signed: Festus Navas MD at 10:53 EDT , Service support ,
--- NOTE | 2020-02-28 10:50 | PN_ITS ---
Patient Problems: Active and Suspected Problems Fracture of distal end of femur (Acute) Subjective: Seems to be tolerating the pain okay. She does not speak Argentine and daughter who is at bedside states that she is little bit confused. Vitals/I&O's: Vital Signs Temp Pulse Resp BP Pulse Ox 98.3 F 70 16 136/77 H 97 02/28/20 05:00 02/28/20 08:22 02/28/20 05:00 02/28/20 05:00 02/28/20 05:00 Oxygen Delivery Method Room Air Weight: 115 lb 8.356 oz Body Mass Index (BMI) 22.5 Intake and Output for Last 24 Hours 02/26/20 02/27/20 02/28/20 23:59 23:59 23:59 Intake Total 0 / 0 490 / 640 150 / 150 Output Total 600 / 600 Balance 1659 -110 / 40 150 / 150 General: Alert, Cooperative, No apparent distress HEENT: Atraumatic, PERRLA, EOMI, Normocephalic Oral: Moist Mucosa Neck: Supple, No JVD Lungs: Clear to auscultation, Normal air movement, No rhonchi, No wheeze, No rales, Diminished Cardiovascular: Regular rate, Regular Rhythm, Normal S1, Normal S2, No murmurs Abdomen: Soft, Non Tender, Non-Distended, No Hepato-splenomegaly Extremities: No edema, Capillary Refill Less than 3 Seconds Skin: No rashes, No breakdown Musculoskeletal: Tenderness - Tenderness palpation of her right knee, still in a brace Neurological: Neuro grossly intact Psych/Mental Status: Normal Affect, Appropriate Laboratory Results 02/28/20 05:38: WBC 10.4, RBC 3.41 L, Hgb 10.0 L, Hct 30.9 L, MCV 90.6, MCH 29.3, MCHC 32.4, RDW Std Deviation 42.2, RDW Coeff of Saleem 12.7, Plt Count 237, MPV 10.1 02/28/20 05:38: Sodium 138, Potassium 4.4, Chloride 104, Carbon Dioxide 28.0, Anion Gap 6, BUN 16, Creatinine 0.95, Estim Creat Clear Calc 33.36, Est GFR (MDRD) Af Amer 73, Est GFR (MDRD) Non-Af 60, BUN/Creatinine Ratio 16.9, Glucose 97, Calcium 8.0 L, Magnesium 1.9 Current Medications Acetaminophen (Tylenol) 650 mg PO Q6H PRN PRN PRN Reason: Pain Score 1-10/Temp > 100.7 F Last Admin: 02/27/20 04:23 Dose: 650 mg Documented by: Al Hydroxide/Mg Hydroxide (Mylanta Ii) 30 ml PO Q6H PRN PRN PRN Reason: Gastric Burning Albuterol Sulfate (Ventolin Aerosols) 2.5 mg INHALATION Q2H PRN PRN PRN Reason: Dyspnea, wheezing Aspirin (A[facility]in) [facility] Last Admin: 02/28/20 08:22 Dose: 325 mg Documented by: Atorvastatin Calcium (Lipitor) 40 mg PO QHS [facility] Last Admin: 02/27/20 21:37 Dose: 40 mg Documented by: Enoxaparin Sodium (Lovenox) 30 mg SC DAILY@0600 [facility] Last Admin: 02/28/20 08:25 Dose: Not Given Documented by: Famotidine (Pepcid) 20 mg PO BID [facility] Last Admin: 02/28/20 08:22 Dose: 20 mg Documented by: Guaifenesin (Robitussin) 20 ml PO Q4H PRN PRN PRN Reason: COUGH Hydralazine HCl (Apresoline Iv) 10 mg IV Q4H PRN PRN PRN Reason: SBP > 160 Sodium Chloride () 250 mls @ 15 mls/hr IV .[id number] PRN PRN Reason: Saline Flush Magnesium Hydroxide (Milk Of Magnesia) 30 ml PO DAILY PRN PRN PRN Reason: Constipation Melatonin (Melatonin) 3 mg PO QHS PRN PRN PRN Reason: INSOMNIA Metoprolol Succinate (Toprol Xl (Beta Skye)) 50 mg PO DAILY [facility] Last Admin: 02/28/20 08:22 Dose: 50 mg Documented by: Morphine Sulfate () 4 mg IV Q3H PRN PRN PRN Reason: Pain Score 6-10/10 Last Admin: 02/25/20 11:14 Dose: 4 mg Documented by: Nitroglycerin (Nitrostat) 0.4 mg SUBLINGUAL Q5M PRN PRN Reason: CARDIAC/CHEST PAIN Ondansetron HCl (Zofran) 4 mg IV Q8H PRN PRN PRN Reason: NAUSEA/VOMITING Last Admin: 02/25/20 05:54 Dose: 4 mg Documented by: Oxycodone HCl (Oxyir) 5 mg PO Q4H PRN PRN PRN Reason: Pain Score 4-5/10 Last Admin: 02/27/20 21:37 Dose: 5 mg Documented by: Prochlorperazine Edisylate (Compazine Iv) 5 mg IV Q4H PRN PRN PRN Reason: Breakthrough nausea/vomiting Last Admin: 02/25/20 14:13 Dose: 5 mg Documented by: Psyllium Hydrophilic Mucilloid (Metamucil) 1 packet PO DAILY PRN PRN PRN Reason: Constipation Senna/Docusate Sodium (Senokot-S, Adamaris-Colace) 2 tablet PO BID PRN PRN PRN Reason: Constipation Sodium Chloride () 10 - 40 ml IV UD PRN PRN Reason: SALINE FLUSH Last Admin: 02/27/20 05:18 Dose: 10 ml Documented by: Throat Lozenges (Cepacol Sore Throat Lozenge) 1 lozenge MUCOUS MEM Q2H PRN PRN PRN Reason: SORE THROAT STROKE Vital Signs/Narrative: Vital Signs Pulse 02/28/20 08:22 70 Medical Necessity - Tobacco Use Smoking Status: Never smoker Tobacco Use: Non-smoker Assessment/Plan All Active Problems Fracture of distal end of femur (Acute) 1. Longitudinal fracture of the distal femur on the right secondary to a mechanical fall -Knee x-ray today demonstrates a slight increase in the widening of the fracture -Per orthopedic surgery continuing with conservative management -She is from [place] therefore will discuss with the daughter if they would like her to be transferred down there for any type of rehab -Continue with PT/OT 2. HTN/HLD -Blood pressure stable, continue with her home blood pressure medication -Continue with aspirin and Lipitor DVT: Lovenox Inpatient E&M: 46705 Subs Hosp L2
--- NOTE | 2020-02-28 11:42 | CASEMGMT ---
Social Work Note SW updated that pt is getting report x-ray today and the x-ray will determine if pt gets surgery or not. NEREYDA placed a call to Debbi with [facility] and left message updating her. Plan: CONSTANCE Verdugo FLIGHT TEST SUPERVISOR, MARINE ELECTRICIAN APPRENTICE
--- NOTE | 2020-02-28 12:15 | PN_ITS ---
Progress Note She has been working with physical therapy over the weekend. There are some language barriers however therapy notes that she has been doing relatively well. She was a single assist with transfers today she had been a weekend. There are concerns however as the patient seems to be confused and somewhat disoriented at times. She had to get a bed alarm. There are times when she has attempted to get out of bed without assistance. The family is also concerned about her confusion and is considering transferring her closer to home prior to co nsidering any surgery. Also x-rays today showed a very slight displacement of the fracture compared to original injury films. For this reason we have discussed proceeding with surgery which would likely be percutaneous fixation of the distal femur in order to stabilize the fracture and protect the patient from any undue harm. I did have a discussion with the daughter today she is agreeable to proceeding with scheduling surgery but is eager to bring her mother close to home as she sees her more confused. Considering the patient's confusion level I agree this can be very beneficial to help stabilize her mental status. We will make the patient n.p.o. after midnight on Friday and schedule her for surgery however, the primary plan at this time is to explore options to have the placement transferred back to [place] prior to further treatment intervention. RAMONITA [facility] Office: [facility] Vital Signs/Narrative: Vital Signs Temp Pulse Resp BP Pulse Ox 02/28/20 10:00 98.1 F 70 18 143/68 H 96 02/28/20 08:22 70
--- NOTE | 2020-02-28 12:43 | NS ---
Asked by DARYL Ramírez to gather food preferences for patient. Spoke w/ family in room. At all meals, pt would like banana, bottled water, and milk. Breakfast: wheat toast w/ strawberry jelly, cereal. Lunch/Dinner: tortilla w/ rice, mckeon beans and side of salsa; salad w/ tomatoes, cucumbers, and ranch dressing; vanilla ice cream; likes fruit berries, melon (must be easy to chew). Food preferences discussed w/ kitchen staff. Please call clinical dietitian at [phone] or kitchen staff at [phone] w/ further concerns. Francesca Brown MS, RDN, LD
--- NOTE | 2020-02-28 14:33 | CASEMGMT ---
Social Work Note Pt is having surgery Friday. NEREYDA placed a call to Debbi with [facility] and updated her that pt is having surgery Friday. SW to continue to follow. Teresa Verdugo PROCESS EXPERT, DESIGN EDITOR
[2020-02-28 16:00] VITALS: BP 140/67; PULSE 79; RESP 16; TEMP 37; O2SAT 99
[2020-02-28 18:41] LABS: Probe Check PASS; Specimen Processing Control PASS
[2020-02-28] MEDS: Atorvastatin Calcium 40 MG Tablet PO (20:35)
--- NOTE | 2020-02-28 20:42 | NURSING ---
Kirstin Dipak called wanting an update on this pt. [phone]. She stated that she had pulled to the side of the road and was wanting an update on the transfer of this pt. I advised her that we were waiting for a call back from the surgeon. She wanted to know if transportation had been arranged yet. Advised her that we cannot arrange for transportation until we have a signed form from the physician. Then she wanted to know if we could get another MD to sign the form. Advised her that we still wanted to talk to the surgeon before we proceeded.
--- NOTE | 2020-02-28 20:56 | NURSING ---
Called fork lift truck operator and asked who was group leader semiconductor processing for Dr. Steven's group. Paranormal Investigator said Darrell BRITO had already spoken to Dr. Deni Estrella who was group leader semiconductor processing for this group and he said to talk to Dr. Steven. Paranormal Investigator put a call in to Dr. Steven for me. Survey Manager Deyanira aware of situation and is talking to ER social services coordinator also to see what we need to do for this possible transfer.
[2020-02-28 21:00] VITALS: BP 121/60; PULSE 86; RESP 16; TEMP 37.2; O2SAT 97
--- NOTE | 2020-02-28 21:15 | NURSING ---
Dr. Stveen just called the floor. He has no objections to this pt being transferred. He said the surgeon can call him if he wants to.
--- NOTE | 2020-02-28 21:25 | NURSING ---
Notified Dr. Macario that Dr. Steven is not opposed to the transfer. Dr. Macario said since this is a nonemergent case, they will handle transfer tomorrow. I called Kirstin Quesada and left message concerning the same.
--- NOTE | 2020-02-28 21:38 | NURSING ---
Kirstin Quesada called back. Advised her transfer would not be happening tonight. She wondered if she should just drive to [place] and see pt. I advised her that there was already one visitor here and it would probably be better to see her when she gets transferred to [place]. Kirstin appeared to agree.
--- NOTE | 2020-02-28 22:03 | NURSING ---
[facility] called for an update on the transfer of this pt. I advised them that the transfer would occur tomorrow.
[2020-02-29 03:30] VITALS: BP 117/66; PULSE 76; RESP 16; TEMP 36.7; O2SAT 97
--- NOTE | 2020-02-29 03:47 | PCM.DC.SUM ---
Discharge Date and Diagnosis - Problem List Patient Problems: Active and Suspected Problems Fracture of distal end of femur (Acute) Date of Admission: 02/25/20 Date of Discharge: 02/29/20 - Primary Discharge Diagnosis Acute Problems: Active Problems Fracture of distal end of femur (Acute) - Secondary Discharge Diagnosis Chronic Problems: Chronic Problems HTN (hypertension) (Chronic) HLD (hyperlipidemia) (Chronic) Hospital Course and Treatment Summary of Care Provided: hpi: The patient is an 79 y/o F w/ PMHx: HTN, HLD who presents to the [facility] ED on 02/25/20 with history of unfortunate mechanical fall approximately 5 hours prior to ED arrival with progressively worsening discomfort with severe/sharp constant, rated 6-7 out of 10 in severity, unable to bear weight, prompting eventual ED presentation. 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 In the ED patient administered Tylenol and ibuprofen. ED discussed case with on-call orthopedic surgeon, Dr. Steven who noted likely nonoperative and recommended knee immobilizer and nonweightbearing status however requested also CT to the right lower extremity to further assess. Pending concurrently admission CBC, BMP per ED. Patient's daughter is present and is acting as business center representative. Discharge summary Lower extremity CT showed intra-articular fracture of right distal femur extending from the medial aspect of the distal femoral diaphysis through the articular surface of the medial femoral condyle and the intercondylar region. Orthopedic surgeon (Dr. Steven) was consulted. Initial conservative therapy with physical therapy and Occupational Therapy; as well as pain control was planned and implemented. Her right knee was placed in immobilizer. Because a repeat x-ray showed slight increasing displacement of the medial fracture fragment of the distal femur compared to previous study; a percutaneous fixation of the distal femur was planned at our hospital. However because patient was occasionally confused and disoriented family was eager to transfer the patient to [place] where patient lives. Patient's family is a physician and internal arrangements was made to transfer patient to [facility]. Accepting physician will be Dr. Main, orthopedic surgeon. Nursing team notified orthopedic surgeon at [facility] who is ok with transfer. Patient Problems: Active and Suspected Problems Fracture of distal end of femur (Acute) - Physical Exam Vitals/I&O's: Vital Signs Temp Pulse Resp BP Pulse Ox 98.1 F 76 16 117/66 97 02/29/20 03:30 02/29/20 03:30 02/29/20 03:30 02/29/20 03:30 02/29/20 03:30 Oxygen Delivery Method Room Air Weight: 52.4 kg Body Mass Index (BMI) 22.5 Intake and Output for Last 24 Hours 02/27/20 02/28/20 02/29/20 23:59 23:59 23:59 Intake Total 490 / 640 150 / 350 200 / 200 Output Total 600 / 600 800 / 800 Balance -110 / 40 -650 / -450 200 / 200 General: Alert, Cooperative HEENT: Atraumatic, PERRLA, EOMI, Normocephalic Neck: Supple, No JVD, Negative Carotid Bruits Lungs: Normal air movement, Rales - Mild Cardiovascular: Regular rate, Regular Rhythm, Normal S1, Normal S2, No murmurs Abdomen: Bowel Sounds Present, Soft, Non Tender Extremities: No edema, Capillary Refill Less than 3 Seconds, Tenderness - R knee in immobilizer, - - Right Knee in immobilizer Skin: No rashes, No breakdown Musculoskeletal: No Tenderness to Palpation of Joints or Extremities Neurological: Cranial nerves II-XII grossly intact Psych/Mental Status: Normal Affect, Appropriate Laboratory Results 02/28/20 05:38: WBC 10.4, RBC 3.41 L, Hgb 10.0 L, Hct 30.9 L, MCV 90.6, MCH 29.3, MCHC 32.4, RDW Std Deviation 42.2, RDW Coeff of Saleem 12.7, Plt Count 237, MPV 10.1 02/28/20 05:38: Sodium 138, Potassium 4.4, Chloride 104, Carbon Dioxide 28.0, Anion Gap 6, BUN 16, Creatinine 0.95, Estim Creat Clear Calc 33.36, Est GFR (MDRD) Af Amer 73, Est GFR (MDRD) Non-Af 60, BUN/Creatinine Ratio 16.9, Glucose 97, Calcium 8.0 L, Magnesium 1.9 02/28/20 : COVID-19 ([facility]) Negative Current Medications Acetaminophen (Tylenol) 650 mg PO Q6H PRN PRN PRN Reason: Pain Score 1-10/Temp > 100.7 F Last Admin: 02/27/20 04:23 Dose: 650 mg Documented by: Al Hydroxide/Mg Hydroxide (Mylanta Ii) 30 ml PO Q6H PRN PRN PRN Reason: Gastric Burning Albuterol Sulfate (Ventolin Aerosols) 2.5 mg INHALATION Q2H PRN PRN PRN Reason: Dyspnea, wheezing [facility]) [facility] Last Admin: 02/28/20 08:22 Dose: 325 mg Documented by: Atorvastatin Calcium (Lipitor) 40 mg PO QHS [facility] Last Admin: 02/28/20 20:35 Dose: 40 mg Documented by: Enoxaparin Sodium (Lovenox) 30 mg SC DAILY@0600 [facility] Last Admin: 02/28/20 08:25 Dose: Not Given Documented by: Famotidine (Pepcid) 20 mg PO DAILY [facility] Guaifenesin (Robitussin) 20 ml PO Q4H PRN PRN PRN Reason: COUGH Hydralazine HCl (Apresoline Iv) 10 mg IV Q4H PRN PRN PRN Reason: SBP > 160 Sodium Chloride () 250 mls @ 15 mls/hr IV .[id number] PRN PRN Reason: Saline Flush Magnesium Hydroxide (Milk Of Magnesia) 30 ml PO DAILY PRN PRN PRN Reason: Constipation Melatonin (Melatonin) 3 mg PO QHS PRN PRN PRN Reason: INSOMNIA Metoprolol Succinate (Toprol Xl (Beta Skye)) 50 mg PO DAILY [facility] Last Admin: 02/28/20 08:22 Dose: 50 mg Documented by: Morphine Sulfate () 4 mg IV Q3H PRN PRN PRN Reason: Pain Score 6-10/10 Last Admin: 02/25/20 11:14 Dose: 4 mg Documented by: Nitroglycerin (Nitrostat) 0.4 mg SUBLINGUAL Q5M PRN PRN Reason: CARDIAC/CHEST PAIN Ondansetron HCl (Zofran) 4 mg IV Q8H PRN PRN PRN Reason: NAUSEA/VOMITING Last Admin: 02/25/20 05:54 Dose: 4 mg Documented by: Oxycodone HCl (Oxyir) 5 mg PO Q4H PRN PRN PRN Reason: Pain Score 4-5/10 Last Admin: 02/27/20 21:37 Dose: 5 mg Documented by: Prochlorperazine Edisylate (Compazine Iv) 5 mg IV Q4H PRN PRN PRN Reason: Breakthrough nausea/vomiting Last Admin: 02/25/20 14:13 Dose: 5 mg Documented by: Psyllium Hydrophilic Mucilloid (Metamucil) 1 packet PO DAILY PRN PRN PRN Reason: Constipation Senna/Docusate Sodium (Senokot-S, Adamaris-Colace) 2 tablet PO BID PRN PRN PRN Reason: Constipation Sodium Chloride () 10 - 40 ml IV UD PRN PRN Reason: SALINE FLUSH Last Admin: 02/27/20 05:18 Dose: 10 ml Documented by: Throat Lozenges (Cepacol Sore Throat Lozenge) 1 lozenge MUCOUS MEM Q2H PRN PRN PRN Reason: SORE THROAT Discharge Diet: No Restrictions Discharge Activity: - - No weightbearing on right leg Home Medications: Medications to take at Discharge Aspirin 325 mg PO DAILY 02/25/20 Atorvastatin Calcium 40 mg PO DAILY 02/25/20 Ergocalciferol (Vitamin D2) [Vitamin D2] 1,250 mcg PO QWEEK 02/25/20 Metoprolol Succinate 50 mg PO DAILY 02/25/20 Primary Care Physician: NOT,DEFINED [NON-STAFF] - Disposition: Acute care Hospital Patient Condition:: Stable Medical Necessity - Tobacco Use Smoking Status: Never smoker Tobacco Use: Non-smoker Meaningful Use Info Meaningful Use Diagnoses (Choose all that apply): None applicable Inpatient E&M: 60962 [facility] Hosp
--- NOTE | 2020-02-29 04:01 | NURSING ---
Called [facility] to see when they would be able to transfer this pt to [facility] in [place]. They advised me to call back after 0800 because then they would be able to give us an accurate estimate when transport could occur. Dispatcher said she knows at this point that they couldn't transport until after 0800. Dr. Macario, animal cruelty investigation supervisor, and Loreto RN advised.
[2020-02-29 05:49] LABS: Hematocrit 30.6 % (37-47); Hemoglobin 10.1 g/dL (12.0-15.0); Mean Corpuscular Hgb 29.9 pg (27.0-32.0); Mean Corpuscular Volume 90.5 fL (81-99); Mean Platelet Vol. 10.3 fl (6.2-12.0); Platelet Count 272 K/mm3 (150-450); RBC Distribution Width CV 12.7 % (11.6-14.6); RBC Distribution Width SD 41.8 fl (35.1-43.9); Red Blood Count 3.38 M/mm3 (4.2-5.4); White Blood Count 10.8 K/mm3 (4.4-11.0)
[2020-02-29 06:05] LABS: Anion Gap 5 (5-15); BUN 18 mg/dL (7-18); BUN/Creat Ratio 18.4 RATIO (10-20); Chloride 103 mmol/L (98-107); Creatinine, Serum 0.98 mg/dL (0.55-1.02); EST Glomerular Filtration Rate 58 mL/min (>60); Est Glom Filt Rate - Afr Amer 70 mL/min (>60); Estimated Creatinine Clearance 32.34 ml/min; Glucose 106 mg/dL (74-106); Potassium 4.1 mmol/L (3.5-5.1); Sodium Level 136 mmol/L (136-145)
--- NOTE | 2020-02-29 07:39 | NURSING ---
report call to Elisha Payton at [facility], room changed to [phone]
[2020-02-29 08:24] VITALS: BP 127/76; PULSE 85; RESP 16; TEMP 37.2; O2SAT 98
--- NOTE | 2020-02-29 10:00 | CASEMGMT ---
Social Work Note Pt is being transferred out to different hospital. SW placed a call to Debbi with [facility] and updated her that pt will be transferred out. Teresa Verdugo ANODE BUILDER, CLUTCH OPERATOR
[2020-02-29] MEDS: oxyCODONE 5 MG Tablet PO (10:22)
[2020-02-29 10:27] VITALS: BP 127/76; PULSE 85; RESP 16; TEMP 37.2; O2SAT 100
== END 2020-02-29 10:25 | disposition short-term general hospital (02) | DRG 340 ==
LOC: ED 02:38 → MS3 03:24
PROVIDERS: Internal Medicine; Admitting Provider Family Medicine; Emergency Provider Emergency Medicine; Visit Provider Family Medicine
DX: S72.401A Unspecified fracture of lower end of right femur, initial encounter for closed fracture (principal); R41.0 Disorientation, unspecified; M16.11 Unilateral primary osteoarthritis, right hip; W01.0XXA Fall on same level from slipping, tripping and stumbling without subsequent striking against object, initial encounter; Y93.01 Activity, walking, marching and hiking; Y92.9 Unspecified place or not applicable; I10 Essential (primary) hypertension; E78.5 Hyperlipidemia, unspecified; Z79.82 Long term (current) use of aspirin; Z79.899 Other long term (current) drug therapy; I25.10 Atherosclerotic heart disease of native coronary artery without angina pectoris; Z85.3 Personal history of malignant neoplasm of breast; M17.11 Unilateral primary osteoarthritis, right knee
CPT/HCPCS: 36415; 70450; 73502; 73560; 73564; 73700; 80048; 80053; 83735; 85025; 85027; 87635; 94799; 97110; 97162; 97166; 97530; 97535; 99251; 99285; J7030; A4216; G0463; J2405; U0003